=== PATIENT | male | born 1935 | race Caucasian/White ===

== ENCOUNTER 2019-07-18 14:35 | Outpatient (CLI) | payer MEDICARE, OTHER, SELFPAY ==
--- NOTE | 2019-07-18 15:00 | MR_ITS ---
WS: [id number] MRI BRAIN WITH HIGH-RESOLUTION IMAGING THROUGH THE INTERNAL AUDITORY CANALS WITHOUT AND WITH CONTRAST HISTORY: DIZZINESS AND GIDDINESS COMPARISON: None available. TECHNIQUE: Multiplanar, multisequence imaging is performed through the brain. Additional 3 mm imaging performed in multiple planes through the internal auditory canal. Postcontrast imaging with 17 ml's of Prohance. No acute intracranial hemorrhage, midline shift, edema or mass effect. Moderate amount of atrophy is symmetric bilaterally. 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 White matter disease is confluent and noted bilaterally. Addit ional small vessel ischemic changes in the aroldo bilaterally, LEFT greater than RIGHT. 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 Ventricles and extra-axial spaces are prominent on the basis of atrophy. No inferior displacement of cerebellar tonsils. Clivus and pituitary gland are normal. Internal and external auditory canals: Unremarkable. Cranial nerves VII and VIII complexes: Unremarkable. No enhancement or mass. Cerebellopontine angles: Normal. Paranasal sinuses: Near complete opacification of the RIGHT maxillary sinus. Likely represents a muco us retention cyst. Mastoid air cells: Normal. Calvarium and scalp: Normal. Atherosclerotic plaque within the distal vertebral arteries and the intracranial carotid arteries. MR/MR iac's wo/w con* [id number] IMPRESSION: 1. No abnormality involving the internal auditory canals. 2. Moderate atrophy with moderate to severe chronic white matter small vessel ischemic changes. Additional chronic ischemic changes in the aroldo bilaterally. 3. 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
== END 2019-07-18 14:36 | disposition home or self-care (01) ==
LOC: RADWPI 14:45
PROVIDERS: PCP Registered Nurse; Visit Provider Specialist
DX: G31.89 Other specified degenerative diseases of nervous system (principal); I63.9 Cerebral infarction, unspecified; R42 Dizziness and giddiness
CPT/HCPCS: 70553; A9579